=== PATIENT | male | born 2000 | race Caucasian/White ===

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

== ENCOUNTER → 2024-05-04 | Outpatient (CLI) | payer MEDICAID, MEDICARE, OTHER | LOC: M LAB 13:30 | PROVIDERS: ATTEND Registered Nurse | DX: R19.7 Diarrhea, unspecified (principal); K58.0 Irritable bowel syndrome with diarrhea ==